=== PATIENT | female | born 1995 | race Caucasian/White ===

== ENCOUNTER 2017-04-13 14:30 | Emergency (ER) | payer SELFPAY ==
[~2017-04-13] VITALS: Ht 157.5 cm; Wt 54.4 kg
--- NOTE | 2017-04-13 14:30 | NUR ---
BBRA 59 FROM HOME FAMILY CALL 911 PT SUICIDAL. DENIES SI/HI AT THIS TIME. PATIENT A/OX 4, BREATHING EVEN AND UNLABORED. NO SOB. PATIENT LOOKS DISHEVELED, DEPRESSED. SAFETY AND COMFORT MEASURES IN PLACE. AWAITING MD ORDERS.
[2017-04-13 14:53] LABS: BASOPHILS # (AUTO) 0.1 /CMM (0.0-0.2); BASOPHILS % (AUTO) 0.7 % (0.0-2.0); EOSINOPHILS # (AUTO) 0.3 /CMM (0.0-0.7); EOSINOPHILS % (AUTO) 2.7 % (0.0-6.0); HEMATOCRIT 47 % (33-45); HEMOGLOBIN 15.9 g/dL (11.5-14.8); LYMPHOCYTES # (AUTO) 3.1 /CMM (0.8-4.8); LYMPHOCYTES % (AUTO) 25.1 % (20.0-44.0); MEAN CORPUSCULAR HEMOGLOBIN 33 PG (26.0-33.0); MEAN CORPUSCULAR HGB CONC 34 g/dl (31.0-36.0); MEAN CORPUSCULAR VOLUME 97 fL (82-100); MONOCYTES % (AUTO) 8.5 % (2.0-12.0); NEUTROPHILS # (AUTO) 7.8 /CMM (1.8-8.9); PLATELET COUNT (AUTO) 356 /CMM (150-450); RDW COEFFICIENT OF VARIATION 11.5 (11.5-15.0); RED BLOOD CELL COUNT(AUTO) 4.81 MIL/uL (4.0-5.2); WHITE BLOOD COUNT (AUTO) 12.3 K/uL (4.3-11.0)
[2017-04-13 15:00] LABS: CALCIUM, SERUM 9.5 mg/dL (8.5-10.1); CARBON DIOXIDE 27 mmol/L (21-32); CHLORIDE 102 mmol/L (98-107); CREATININE 0.8 mg/dL (0.6-1.3); GLUCOSE 89 mg/dL (74-106); SODIUM SERUM 134 mmol/L (136-145); UREA NITROGEN, BLOOD 14 mg/dL (7-18)
[2017-04-13 15:02] LABS: ALCOHOL, BLOOD < 3 mg/dL (0-0)
--- NOTE | 2017-04-13 15:06 | NUR ---
[employer] AT BEDSIDE
--- NOTE | 2017-04-13 15:24 | NUR ---
CALLED [facility]ALLI FOR PSYCH EVAL, ETA WITHIN THE HOUR
--- NOTE | 2017-04-13 16:45 | NUR ---
[employer] AT BEDSIDE FOR EVAL.
--- NOTE | 2017-04-13 18:14 | NUR ---
Patient discharged to home in stable condition. Written and verbal after care instructions given. Patient verbalizes understanding of instruction.
[2017-04-13 18:15] VITALS: BP 120/80
== END 2017-04-13 18:16 | disposition home or self-care (01) ==
LOC: ER 14:32
DX: F32.9 Major depressive disorder, single episode, unspecified (principal); F17.200 Nicotine dependence, unspecified, uncomplicated
CPT/HCPCS: 36415; 80048; 80305; 84703; 85025; 99284; A4606; G0480; Z7610

== ENCOUNTER 2023-03-31 17:11 | Emergency (ER) | payer SELFPAY ==
[~2023-03-31] VITALS: Ht 157.5 cm; Wt 49.9 kg
[2023-03-31 17:22] VITALS: TEMP 99
[2023-03-31 17:29] VITALS: O2SAT 100
[2023-03-31] MEDS ORDERED: IPRATROPIUM NEB FS 0.5 MG/2.5 ML AMPUL.NEB NEB ONE (17:30)
[2023-03-31] MEDS ORDERED: IPRATROPIUM NEB FS 0.5 MG/2.5 ML AMPUL.NEB ONE (17:30)
[2023-03-31] MEDS ORDERED: Magnesium 1GM/D5W 100ML PREMIX 200 ML IV ONE (17:30)
[2023-03-31] MEDS ORDERED: IV NS 0.9% 1,000 ML BAG IV ONE (17:30)
[2023-03-31] MEDS ORDERED: methylPREDNISolone SOD SUCC 125 MG/2ML VIAL IV ONE (17:30)
[2023-03-31] MEDS ORDERED: ALBUTEROL FS 2.5 MG/3 ML VIAL.NEB NEB ONE (17:30)
[2023-03-31] MEDS ORDERED: ALBUTEROL FS 2.5 MG/3 ML VIAL.NEB ONE (17:30)
[2023-03-31] MEDS ORDERED: methylPREDNISolone SOD SUCC 125 MG/2ML VIAL ONE (17:31)
[2023-03-31] MEDS ORDERED: Magnesium 1GM/D5W 100ML PREMIX 100 ML IV ONE ×2 (17:31→17:48)
[2023-03-31 17:46] VITALS: O2SAT 100
[2023-03-31] MEDS ORDERED: PRED50TA PO (19:42)
[2023-03-31] MEDS ORDERED: FLUT10.62 INH (19:42)
[2023-03-31 19:51] VITALS: BP 123/86; O2SAT 96
[2023-04-01] MEDS ORDERED: IPRATROPIUM NEB FS 0.5 MG/2.5 ML AMPUL.NEB ONE (06:58)
== END 2023-03-31 19:51 | disposition home or self-care (01) ==
LOC: ER 17:22
DX: J45.909 Unspecified asthma, uncomplicated (principal); R06.03 Acute respiratory distress; F17.210 Nicotine dependence, cigarettes, uncomplicated; Z20.822 Contact with and (suspected) exposure to COVID-19; Z79.899 Other long term (current) drug therapy
CPT/HCPCS: 99291; 96365; 96375; 87426; 99406; 93005; 87804 ×2; 94799; 94640; J2930; J7030; J3475 ×2; C9803; A4223 ×2